=== PATIENT | male | born 1945 | race Caucasian/White ===

== ENCOUNTER 2019-04-14 08:36 | Emergency (ER) | payer MEDICARE, SELFPAY ==
[2019-04-14 08:50] VITALS: BP 181/79; PULSE 50; RESP 15; TEMP 37.3; O2SAT 98
--- NOTE | 2019-04-14 08:54 | DI.RAD.S_ITS ---
PROCEDURE: XR CHEST 1V INDICATIONS: chest pain TECHNIQUE: One view of the chest was acquired. COMPARISON: [facility], , CHEST 1 VIEW, 09/13/2015, 8:49. FINDINGS: Surgical changes and devices: None. Lungs and pleura: Lungs are clear. No pleural effusions or pneumothorax. Mediastinum: Mediastinal contours appear normal. Heart size is normal. Bones and chest wall: No suspicious bony lesions. Overlying soft tissues appear unremarkable. IMPRESSION: No acute disease Dictated by: Benitez Yang M.D. on 04/14/2019 at 9:25 Approved by: Benitez Yang M.D. on 04/14/2019 at 9:33
--- NOTE | 2019-04-14 08:57 | ED.CHESTPAIN ---
HPI - Chest Pain General Chief Complaint: Arrhythmia/Palpitations Stated Complaint: heart beat irregular Time Seen by Provider: 04/14/19 08:54 Source: patient Mode of arrival: Ambulatory Limitations: no limitations History of Present Illness HPI narrative: Patient is a 73-year-old male who presents with heart palpitations history of atrial fibrillation. He says he has been having it more over the last 5 days. He has been doing well over the last year. 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 Weir a fee gave him metoprolol to take as needed he has not needed it for a year but has definitely needed it more over the last week. He wakes up in the mornings a severe heart palpitation dizziness lightheadedness. He was seen by EMS according to them they said he had irregular heartbeat but his heart rate was 64 according to the records he brought. Currently he is in sinus rhythm on the monitor with a heart rate of 57 overall feeling much better. MD complaint: chest pain Duration: now resolved Onset: during rest Related Data Home Medications Medication Instructions Recorded Confirmed DORZOLAMIDE HYDROCHLORIDE 1 drp OPHTH BID #0 06/05/11 04/14/19 (Dorzolamide HCl) latanoprost [Xalatan] 1 drp OPHTH HS #0 drp 03/08/13 04/14/19 aspirin 81 mg PO DAILY 04/14/19 04/14/19 metoprolol tartrate 50 mg PO DAILY 04/14/19 04/14/19 timolol maleate 1 drp OPHTHALMIC (EYE) DIRECTED 04/14/19 04/14/19 Allergies Allergy/AdvReac Type Severity Reaction Status Date / Time Xifzwqi-Mwq-Pbo Reductase Allergy Mild EYE TROUBLE Unverified 10/06/17 12:04 Inhibitor [[id number] REDUCTASE INHIBITOR] alfuzosin [ALFUZOSIN] AdvReac Unknown PALPITATION Unverified 10/06/17 12:04 S dutasteride [DUTASTERIDE] AdvReac Unknown PALPITATION Unverified 10/06/17 12:04 S Review of Systems Review of Systems Narrative: GENERAL: Denies chills, fatigue, malaise, fever, sweats, travel HEENT: Denies sinus pain, ear pain, sore throat, difficulty swallowing, neck pain RESPIRATORY: Denies dyspnea, cough, wheezing, hemoptysis, sputum. CARDIOVASCULAR: See HPI GASTROINTESTINAL: Denies nausea, vomiting, abdominal pain, diarrhea, constipation, melena. : Denies dysuria, frequency, incontinence, hematuria, urinary retention, flank pain. MUSCULOSKELETAL: Denies weakness, joint pain, or bony pain SKIN: No rash, no erythema, no pruritus NEUROLOGIC: Denies weakness, dizziness, headache, numbness, change in speech, confusion PSYCHIATRIC: No concerning psychosocial issues. 12 point review of systems is negative except for those stated above and HPI Patient History Medical History Atypical chest pain (Acute) Benign non-nodular prostatic hyperplasia with lower urinary tract symptoms (09/19/15) Essential hypertension with goal blood pressure less than 130/85 (09/19/15) Gastroesophageal reflux disease with esophagitis (09/19/15) History of stroke (09/19/15) Mixed hyperlipidemia (09/19/15) Primary open angle glaucoma (POAG) of both eyes, mild stage (09/19/15) 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) Surgical History Status post cholecystectomy Family History (Updated 09/18/16 @ 00:00 by Conversion Provider) Father Cancer Family History Father Cancer Social History Smoking Status: Never smoker Exam Initial Vital Signs Initial Vital Signs: Vital Signs Temperature 99.2 F 04/14/19 08:50 Pulse Rate 50 L 04/14/19 08:50 Respiratory Rate 15 04/14/19 08:50 Blood Pressure 181/79 H 04/14/19 08:50 Pulse Oximetry 98 04/14/19 08:50 GENERAL: Well-appearing, well-nourished and in no acute distress. HEENT: Head atraumatic,EOMI, pupils reactive, face symmetric, moist mucous membranes CARDIOVASCULAR: Regular rate and rhythm without murmurs, rubs or gallops. RESPIRATORY: Breath sounds equal bilaterally, no wheezes rales or rhonchi. ABDOMEN: Soft, nontender. Normoactive bowel sounds all 4 quadrants. No guarding or rebound. EXTREMITIES: Normal range of motion, no clubbing or edema. Neurovascularly intact NEUROLOGICAL: Alert and oriented x4.Normal gait and speech. SKIN: Warm, dry, no laceration, no petechiae, no rashes or lesions. Course Orders Ordered: ED Orders 04/14/19 08:51 EKG-12 Lead Routine 04/14/19 08:54 XR chest 1V Stat 04/14/19 09:00 Complete Blood Count AUTO DIFF Stat Comprehensive Metabolic Panel Stat Lipase Stat Troponin & CK Cardiac Panel Stat Vital Signs Vital signs: Vital Signs - 8 hr 04/14/19 08:50 04/14/19 09:08 04/14/19 10:03 Temperature 99.2 F 99.2 F Pulse Rate 50 L 50 L 47 L Respiratory Rate 15 15 13 Blood Pressure 164/78 H Blood Pressure [Left Arm] 181/79 H 127/80 Pulse Oximetry 98 98 98 MDM - Chest Pain Lab Data Attestation: I reviewed the patient's lab results. Result diagrams: 04/14/19 09:00 04/14/19 09:00 Labs: Lab Results 04/14/19 04/14/19 Range/Units 09:00 09:00 WBC 7.2 (4.5-11.0) X10^3/uL RBC 5.01 (4.5-5.9) X10^6/uL Hgb 15.9 (13.5-17.5) g/dL Hct 46.1 (41-53) % MCV 92.0 (80-100) fL MCH 31.6 (26-34) PG MCHC 34.4 (30-36) % RDW 13.3 (11.6-14.8) % Plt Count 232 (150-400) X10^3/uL Neut % (Auto) 70.1 (50-75) % Lymph % (Auto) 20.8 L (25-40) % [place] % (Auto) 8.1 (3-14) % Eos % (Auto) 0.4 L (2-4) % Baso % (Auto) 0.6 (0-2) % Neut # (Auto) 5000 (8532-3123) /uL Lymph # (Auto) 1500 (9454-8386) /uL [place] # (Auto) 600 (0-900) /uL Eos # (Auto) 0 (0-450) /uL Baso # (Auto) 0 (0-100) /uL Sodium 138 (137-145) mmol/L Potassium 4.2 (3.4-5.1) mmol/L Chloride 101 (98-107) mmol/L Carbon Dioxide 27 (22-32) mmol/L BUN 16 (9-20) mg/dL Creatinine 0.90 (0.66-1.25) mg/dL Estimated GFR > 60.0 (>60) mL/min BUN/Creatinine Ratio 17.8 (6-22) Glucose 107 (80-110) mg/dL Calcium 9.5 (8.4-10.2) mg/dL Total Bilirubin 1.2 (0.2-1.3) mg/dL AST 46 (17-59) IU/L ALT 40 (21-72) IU/L Alkaline Phosphatase 67 (38-126) U/L Total Creatine Kinase 173 H (55-170) U/L CK-MB (CK-2) 5.13 H (<2.37) ng/mL CK-MB (CK-2) Rel Index 3.0 (1.5-5.0) % Troponin I < 0.012 (0.01-0.034) ng/mL Total Protein 7.5 (6.3-8.2) g/dL Albumin 4.7 (3.5-5.0) g/dL Globulin 2.8 (1.7-4.1) g/dL Albumin/Globulin Ratio 1.7 (1.0-2.8) Lipase 41 (23-300) U/L Imaging Data Chest x-ray: Radiologist's impression: PROCEDURE: XR CHEST 1V INDICATIONS: chest pain TECHNIQUE: One view of the chest was acquired. [facility]2015, 8:49. FINDINGS: Surgical changes and devices: None. Lungs and pleura: Lungs are clear. No pleural effusions or pneumothorax. Mediastinum: Mediastinal contours appear normal. Heart size is normal. Bones and chest wall: No suspicious bony lesions. Overlying soft tissues appear unremarkable. IMPRESSION: No acute disease Dictated by: Benitez Yang M.D. on 04/14/2019 at 9:25 ECG Data Attestation: I personally reviewed and interpreted this ECG as follows: Prior ECG tracings: available for review Interpretation: Normal sinus rhythm rate 55 p.r. interval 186 QRS [address] elevations or depressions similar to previous EKG MDM Narrative Medical decision making narrative: The patient overall appears well in the ED. No PVCs or arrhythmia on the monitor. He does have a prescription with refills of metoprolol. He was only taking it as needed however I do recommend that he start taking it daily as his symptoms seem to be worsening. 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 I discussed all findings with the patient , Education has been performed regarding treatment plan, diagnosis, warning signs and symptoms and all concerns have been addressed. Verbally agree with and understood all of the above. Discharge Plan Departure Patient Disposition: Home Clinical Impression: Heart palpitations Discharge Date/Time: 04/14/19 10:30 Instructions: DI for Palpitations Activity Restrictions/Additional Instructions: *You have been diagnosed with palpitations *What to do: I recommend you see your field crop harvest contractor for further evaluation. However at this time blood work and EKG are reassuring. *Continue to take medications as directed Metoprolol once daily *Follow up with your primary care provider in 2-3 days *Return to ER if you should have increasing heart palpitations or any new, worsening or concerning symptoms Prescriptions: No Action DORZOLAMIDE HYDROCHLORIDE (Dorzolamide HCl) 1 drp OPHTH BID Qty: 0 RF: 0 latanoprost [Xalatan] 0.005 % drops 1 drp OPHTH HS Qty: 0 RF: 0 aspirin 81 mg Tablet,Delayed Release (Dr/Ec) 81 mg PO DAILY RF: 0 metoprolol tartrate 50 mg tablet 50 mg PO DAILY RF: 0 timolol maleate 1 drp ophthalmic (eye) DIRECTED RF: 0 Referrals: Trey Bnod MD [Non-Staff] - Lawrence Rowan MD [Primary Care Provider] -
[2019-04-14 09:08] VITALS: BP 164/78; PULSE 50; RESP 15; TEMP 37.3; O2SAT 98; BMI 28.7
[2019-04-14 09:11] LABS: Add Manual Diff / Slide Review NO; Basophils Absolute Auto 0 /uL (0-100); Basophils Percent Auto 0.6 % (0-2); Eosinophils Absolute Auto 0 /uL (0-450); Eosinophils Percent Auto 0.4 % (2-4); Hematocrit 46.1 % (41-53); Hemoglobin 15.9 g/dL (13.5-17.5); Lymphocytes Absolute Auto 1500 /uL (1100-4500); Lymphocytes Percent Auto 20.8 % (25-40); Mean Corpuscular HGB Conc 34.4 % (30-36); Mean Corpuscular Hemoglobin 31.6 PG (26-34); Monocytes Absolute Auto 600 /uL (0-900); Monocytes Percent Auto 8.1 % (3-14); Neutrophils Absolute Auto 5000 /uL (1500-7000); Neutrophils Percent Auto 70.1 % (50-75); Platelet Count 232 X10^3/uL (150-400); Red Blood Cell Count 5.01 X10^6/uL (4.5-5.9); Red Cell Distribution Width 13.3 % (11.6-14.8); White Blood Cell Count 7.2 X10^3/uL (4.5-11.0)
[2019-04-14 09:24] LABS: Alanine Aminotransferase 40 IU/L (21-72); Albumin 4.7 g/dL (3.5-5.0); Albumin Globulin Ratio 1.7 (1.0-2.8); Alkaline Phosphatase 67 U/L (38-126); Aspartate Aminotransferase 46 IU/L (17-59); BUN Creatinine Ratio 17.8 (6-22); Bilirubin Total 1.2 mg/dL (0.2-1.3); Blood Urea Nitrogen 16 mg/dL (9-20); Calcium 9.5 mg/dL (8.4-10.2); Carbon Dioxide 27 mmol/L (22-32); Chloride 101 mmol/L (98-107); Creatine Kinase 173 U/L (55-170); Estimated Glomerular Filt Rate > 60.0 mL/min (>60); Globulin 2.8 g/dL (1.7-4.1); Glucose 107 mg/dL (80-110); HEMOLYSIS < 15 (0-50); Lipase 41 U/L (23-300); Potassium 4.2 mmol/L (3.4-5.1); Sodium 138 mmol/L (137-145); Total Protein 7.5 g/dL (6.3-8.2)
[2019-04-14 09:35] LABS: Troponin I < 0.012 ng/mL (0.01-0.034)
[2019-04-14 09:39] LABS: Creatine Kinase MB 5.13 ng/mL (<2.37)
[2019-04-14 10:03] VITALS: BP 127/80; PULSE 47; RESP 13; O2SAT 98
== END 2019-04-14 10:30 | disposition home or self-care (01) ==
PROVIDERS: Emergency Provider Emergency Medicine; Family Provider Family Medicine; PCP Family Medicine
DX: R00.2 Palpitations (principal)
CPT/HCPCS: 36415; 71045; 80053; 82550; 82553; 83690; 84484; 85025; 93005; 99282; 99285

== ENCOUNTER 2021-03-19 11:53 | Emergency (ER) | payer OTHER, MEDICARE, SELFPAY ==
[2021-03-19 12:03] VITALS: BP 178/84; PULSE 85; RESP 16; TEMP 36.7; O2SAT 99; BMI 28.5
--- NOTE | 2021-03-19 12:30 | PC.NURSE ---
Patient reports flank pain started 5 days ago and starting 2 days ago noticed that his stream has weakened during urination. Continues to have flank pain that is relieved by urinating but feels like he is unable to empty his bladder.
[2021-03-19 12:36] LABS: Appearance Urine UA CLEAR; Bilirubin Urine UA NEGATIVE (NEGATIVE); Color Urine UA YELLOW; Glucose Urine UA NEGATIVE (Negative); Ketones Urine UA NEGATIVE (NEGATIVE); Leukocyte Esterase Urine UA NEGATIVE (NEGATIVE); Nitrite Urine UA NEGATIVE (Negative); Occult Blood Urine UA TRACE-INTACT (Negative); Protein Urine UA NEGATIVE (Negative); Specific Gravity Urine UA 1.015 (1.000-1.035); Urobilinogen Urine UA 0.2 E.U./dL (0.2)
[2021-03-19 12:45] LABS: Amorphous Sediment Urine 1+; Culture Indicated Urine Cult Not Indicated; RBC Urine 0-1/HPF (0-5/HPF); WBC Urine None Seen (0-5/HPF)
--- NOTE | 2021-03-19 13:07 | DI.CT.S_ITS ---
PROCEDURE: CT KIDNEY URETER BLADDER (KUB) INDICATIONS: Right flank pain. Eval for kidney stone. TECHNIQUE: Axial sections were acquired from the lung bases to the pubic symphysis. Coronal and sagittal reformats were performed. For radiation dose reduction, the following was used: automated exposure control, adjustment of mA and/or kV according to patient size. COMPARISON: [facility], CT, KIDNEY/ URETER/BLADDER, 11/01/2013, 8:21. FINDINGS: Image quality: Excellent. Lung bases: Unremarkable. Heart: No significant findings. URINARY: Right Kidney: No stones or hydronephrosis. Right Ureter: No hydroureter. Left Kidney: No stones or hydronephrosis. Left Ureter: No hydroureter. Bladder: Normal wall thickness. No stones. Suspect TURP. ABDOMEN: Liver: Liver is normal in size. A 1.1 cm cyst is seen in segment 4 of liver, new since the last exam. In addition, there is a 1.8 x 1.5 cm exophytic cyst adjacent to the posterior inferior margin of liver, slightly enlarged (previously measured 1.4 x 1.0 cm on 11/01/2013). Gallbladder: Surgically removed. Biliary ducts: Unremarkable. Pancreas: Unremarkable. Spleen: Unremarkable. Adrenal Glands: Unremarkable. Stomach and Bowel: Stomach, small bowel loops, and colon are normal in caliber. Appendix is normal. Diverticulosis without acute diverticulitis. Peritoneum: No abnormal intraperitoneal fluid. No free air. Ventral Wall: Small fat containing umbilical hernia. Abdominal Nodes: No enlarged retroperitoneal or mesenteric lymph nodes. Vessels: Aorta and inferior vena cava are normal in size. PELVIS: Pelvic Organs: Unremarkable. Pelvic Nodes: Unremarkable. Miscellaneous: There is a small fat containing right inguinal hernia. Bones: Degenerative disc disease in lumbar spine, most pronounced at L3-L4. Severe facet arthropathy at L 3-L4 and L4-L5 bilaterally. IMPRESSION: 1. No renal stone or hydronephrosis. 2. Suspect TURP. 3. Normal appendix. 4. Diverticulosis without diverticulitis. 5. Degenerative disc and facet disease in lumbar spine. Dictated by: Gómez George M.D. on 03/19/2021 at 13:41 Approved by: Gómez George M.D. on 03/19/2021 at 13:53
--- NOTE | 2021-03-19 13:11 | ED_ITS ---
HPI - Back Pain/Injury General Chief Complaint: Back Pain/Injury Stated Complaint: bladder and kidney pain Time Seen by Provider: 03/19/21 12:54 Source: patient Mode of arrival: Ambulatory History of Present Illness HPI Narrative: Patient is a 75-year-old male sent from [place] by his primary doctor for evaluation of potential kidney stone. Patient states that for the past week he has had right-sided flank discomfort. Has also had some dysuria. Has had some prostate issues in the past. No fevers. He has never had a kidney stone in the past. He states that there have been times where he felt like he has been retaining urine. No skin rashes. Taking all of his medications as directed. Related Data Home Medications Medication Instructions Recorded Confirmed DORZOLAMIDE HYDROCHLORIDE 1 drp OPHTH BID #0 06/05/11 04/14/19 (Dorzolamide HCl) latanoprost 0.005 % eye drops 1 drp OPHTH HS #0 drp 03/08/13 04/14/19 (Xalatan) aspirin 81 mg tablet,delayed 81 mg PO DAILY 04/14/19 04/14/19 release metoprolol tartrate 50 mg tablet 50 mg PO DAILY 04/14/19 04/14/19 timolol maleate 1 drp OPHTHALMIC (EYE) DIRECTED 04/14/19 04/14/19 Allergies Allergy/AdvReac Type Severity Reaction Status Date / Time Epuiluz-Wgr-Iah Reductase Allergy Mild EYE TROUBLE Unverified 10/06/17 12:04 Inhibitor [[id number] REDUCTASE INHIBITOR] alfuzosin [ALFUZOSIN] AdvReac Unknown PALPITATION Unverified 10/06/17 12:04 S dutasteride [DUTASTERIDE] AdvReac Unknown PALPITATION Unverified 10/06/17 12:04 S Review of Systems Cardiovascular Cardiovascular: Reports system reviewed and no additional complaints, except as documented Respiratory Respiratory: Reports system reviewed and no additional complaints, except as documented Gastrointestinal Gastrointestinal: Reports as per HPI and Reports system reviewed and no additional complaints, except as documented Genitourinary Genitourinary: Reports system reviewed and no additional complaints, except as documented and Reports as per HPI Musculoskeletal Musculoskeletal: Reports system reviewed and no additional complaints, except as documented Integumentary/Breasts Skin/Breast: Reports system reviewed and no additional complaints, except as documented Neurologic Neurologic: Reports system reviewed and no additional complaints, except as documented Hematologic/Lymphatic On Anticoagulants: No Patient History Medical History Atypical chest pain Benign non-nodular prostatic hyperplasia with lower urinary tract symptoms (09/19/15) Essential hypertension with goal blood pressure less than 130/85 (09/19/15) Gastroesophageal reflux disease with esophagitis (09/19/15) History of stroke (09/19/15) Mixed hyperlipidemia (09/19/15) Primary open angle glaucoma (POAG) of both eyes, mild stage (09/19/15) 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) Surgical History Status post cholecystectomy Family History Father Cancer Social History Smoking Status: Never smoker Smoking Status: Never smoker alcohol intake frequency: 0-2 drinks per day Substance Use Type: does not use Exam Initial Vital Signs Initial Vital Signs: Vital Signs Temperature 98.1 F 03/19/21 12:03 Pulse Rate 85 03/19/21 12:03 Respiratory Rate 16 03/19/21 12:03 Blood Pressure 178/84 H 03/19/21 12:03 Pulse Oximetry 99 03/19/21 12:03 Const General: cooperative and healthy appearing HENME Head: normal to inspection and normocephalic Resp Effort & Inspection: normal respiratory effort Cardio Rate: regular rate GI Inspection: normal to inspection Palpation: soft and No tender Back/Spine/Pelvis Back: No CVA tenderness Skin General: no rashes or lesions noted Neuro General: patient alert, patient awake and moves all extremities Extrem General: normal to inspection and capillary refill normal Course Orders Ordered: ED Orders 03/19/21 12:11 Basic Metabolic Panel Stat Complete Blood Count AUTO DIFF Stat 03/19/21 12:21 Urinalysis and Microscopic Stat Urine Culture Stat 03/19/21 13:07 CT kidney ureter bladder (KUB) Stat Vital Signs Vital signs: Vital Signs - 8 hr 03/19/21 12:03 03/19/21 14:23 Temperature 98.1 F Pulse Rate 85 70 Respiratory Rate 16 18 Blood Pressure 178/84 H 167/84 H Pulse Oximetry 99 95 MDM - Back Pain/Injury Lab Data Attestation: I reviewed the patient's lab results. Result diagrams: 03/19/21 12:11 03/19/21 12:11 Labs: Lab Results 03/19/21 03/19/21 03/19/21 Range/Units 12:11 12:11 12:21 WBC 7.4 (4.5-11.0) X10^3/uL RBC 5.21 (4.5-5.9) X10^6/uL Hgb 16.4 (13.5-17.5) g/dL Hct 49.3 (41-53) % MCV 94.7 (80-100) fL MCH 31.6 (26-34) PG MCHC 33.3 (30-36) % RDW 13.9 (11.6-14.8) % Plt Count 256 (150-400) X10^3/uL Neut % (Auto) 64.9 (50-75) % Lymph % (Auto) 23.6 L (25-40) % [place] % (Auto) 9.6 (3-14) % Eos % (Auto) 1.3 L (2-4) % Baso % (Auto) 0.6 (0-2) % Neut # (Auto) 4800 (9475-1848) /uL Lymph # (Auto) 1800 (5313-8798) /uL [place] # (Auto) 700 (0-900) /uL Eos # (Auto) 100 (0-450) /uL Baso # (Auto) 0 (0-100) /uL Sodium 136 L (137-145) mmol/L Potassium 4.4 (3.4-5.1) mmol/L Chloride 103 (98-107) mmol/L Carbon Dioxide 28 (22-32) mmol/L BUN 24 H (9-20) mg/dL Creatinine 0.89 (0.66-1.25) mg/dL Estimated GFR > 60.0 (>60) mL/min BUN/Creatinine Ratio 27.0 H (6-22) Glucose 109 (80-110) mg/dL Calcium 9.2 (8.4-10.2) mg/dL Urine Color Yellow Urine Appearance Clear Urine pH 5.0 (4.5-8.0) Ur Specific [place] 1.015 (1.000-1.035) Urine Protein Negative (Negative) Urine Glucose (UA) Negative (Negative) g/dL Urine Ketones Negative (NEGATIVE) Urine Occult Blood Trace-intact (Negative) Urine Nitrate Negative (Negative) Urine Bilirubin Negative (NEGATIVE) Urine Urobilinogen 0.2 (0.2) E.U./dL Ur Leukocyte Esterase Negative (NEGATIVE) Urine RBC 0-1/hpf (0-5/HPF) Urine WBC None seen (0-5/HPF) Amorphous Sediment 1+ Urine Bacteria None seen (None) Ur Culture Indicated? Cult not indicated Imaging Data CT scan - abdomen/pelvis: Radiologist's Impression: [address] [id number] Scan ReportSigned Patient: Lawrence Turner GMR#: [id number]: 4Acct:[id number]/Sex: 75 / MDate of Service: 03/19/21Loc: EDAccession Number: [id number] Procedure: CT kidney ureter bladder (KUB) Ordering Provider: Fly Gonsales D.O. PROCEDURE: CT KIDNEY URETER BLADDER (KUB) INDICATIONS: Right flank pain. Eval for kidney stone. TECHNIQUE: Axial sections were acquired from the lung bases to the pubic symphysis. Coronal and sagittal reformats were performed. For radiation dose reduction, the following was used: automated exposure control, adjustment of mA and/or kV according to patient size. COMPARISON: [facility], CT, KIDNEY/ URETER/BLADDER, 11/01/2013, 8:21. FINDINGS: Image quality: Excellent. Lung bases: Unremarkable. Heart: No significant findings. URINARY: Right Kidney: No stones or hydronephrosis. Right Ureter: No hydroureter. Left Kidney: No stones or hydronephrosis. Left Ureter: No hydroureter. Bladder: Normal wall thickness. No stones. Suspect TURP. ABDOMEN: Liver: Liver is normal in size. A 1.1 cm cyst is seen in segment 4 of liver, new since the last exam. In addition, there is a 1.8 x 1.5 cm exophytic cyst adjacent to the posterior inferior margin of liver, slightly enlarged (previously measured 1.4 x 1.0 cm on 11/01/2013). Gallbladder: Surgically removed. Biliary ducts: Unremarkable. Pancreas: Unremarkable. Spleen: Unremarkable. Adrenal Glands: Unremarkable. Stomach and Bowel: Stomach, small bowel loops, and colon are normal in caliber. Appendix is normal. Diverticulosis without acute diverticulitis. Peritoneum: No abnormal intraperitoneal fluid. No free air. Ventral Wall: Small fat containing umbilical hernia. Abdominal Nodes: No enlarged retroperitoneal or mesenteric lymph nodes. Vessels: Aorta and inferior vena cava are normal in size. PELVIS: Pelvic Organs: Unremarkable. Pelvic Nodes: Unremarkable. Miscellaneous: There is a small fat containing right inguinal hernia. Bones: Degenerative disc disease in lumbar spine, most pronounced at L3-L4. Severe facet arthropathy at L 3-L4 and L4-L5 bilaterally. IMPRESSION: 1. No renal stone or hydronephrosis. 2. Suspect TURP. 3. Normal appendix. 4. Diverticulosis without diverticulitis. 5. Degenerative disc and facet disease in lumbar spine. Dictated by: Gómez George M.D. on 03/19/2021 at 13:41 Approved by: Gómez George M.D. on 03/19/2021 at 13:53 MDM Narrative Medical decision making narrative: Labs unremarkable. CT scan does not show any signs of kidney stone. No signs of urinary retention. No signs of urinary tract infection based on labs today. Kidney functions unremarkable. Potentially could have had a stone that he has passed prior to the CT scan. He did urinate here in the emergency department and stated that his symptoms seem to be improving somewhat. No emergent condition found today on workup. No further imaging test needed. No indication for antibiotics. When patient follow-up with primary provider. He expressed understanding and agreement. Discharge Plan Departure Patient Disposition: Home Clinical Impression: Dysuria Instructions: DI for Dysuria -- Adult Activity Restrictions/Additional Instructions: continue to take all of your medications as directed. Contact your primary doctor for a follow-up. Return to the emergency department for any new or worsening symptoms. Prescriptions: No Action DORZOLAMIDE HYDROCHLORIDE (Dorzolamide HCl) 1 drp OPHTH BID Qty: 0 RF: 0 latanoprost [Xalatan] 0.005 % drops 1 drp OPHTH HS Qty: 0 RF: 0 aspirin 81 mg Tablet,Delayed Release (Dr/Ec) 81 mg PO DAILY RF: 0 metoprolol tartrate 50 mg tablet 50 mg PO DAILY RF: 0 timolol maleate 1 drp ophthalmic (eye) DIRECTED RF: 0 Referrals: Lawrence Rowan MD [Primary Care Provider] -
[2021-03-19 13:17] LABS: Add Manual Diff / Slide Review NO; Basophils Absolute Auto 0 /uL (0-100); Basophils Percent Auto 0.6 % (0-2); Eosinophils Absolute Auto 100 /uL (0-450); Eosinophils Percent Auto 1.3 % (2-4); Hematocrit 49.3 % (41-53); Hemoglobin 16.4 g/dL (13.5-17.5); Lymphocytes Absolute Auto 1800 /uL (1100-4500); Lymphocytes Percent Auto 23.6 % (25-40); Mean Corpuscular HGB Conc 33.3 % (30-36); Mean Corpuscular Hemoglobin 31.6 PG (26-34); Mean Corpuscular Volume 94.7 fL (80-100); Monocytes Absolute Auto 700 /uL (0-900); Monocytes Percent Auto 9.6 % (3-14); Neutrophils Absolute Auto 4800 /uL (1500-7000); Neutrophils Percent Auto 64.9 % (50-75); Platelet Count 256 X10^3/uL (150-400); Red Blood Cell Count 5.21 X10^6/uL (4.5-5.9); Red Cell Distribution Width 13.9 % (11.6-14.8); White Blood Cell Count 7.4 X10^3/uL (4.5-11.0)
[2021-03-19 13:29] LABS: Blood Urea Nitrogen 24 mg/dL (9-20); Calcium 9.2 mg/dL (8.4-10.2); Carbon Dioxide 28 mmol/L (22-32); Chloride 103 mmol/L (98-107); Estimated Glomerular Filt Rate > 60.0 mL/min (>60); Glucose 109 mg/dL (80-110); Potassium 4.4 mmol/L (3.4-5.1); Sodium 136 mmol/L (137-145)
[2021-03-19 13:31] LABS: HEMOLYSIS 54 (0-50)
[2021-03-19 14:11] LABS: Bacteria Urine None Seen
[2021-03-19 14:23] VITALS: BP 167/84; PULSE 70; RESP 18; O2SAT 95
== END 2021-03-19 14:24 | disposition home or self-care (01) ==
PROVIDERS: Emergency Provider Emergency Medicine; Family Provider Family Medicine; PCP Family Medicine
DX: R30.0 Dysuria (principal); R10.9 Unspecified abdominal pain
CPT/HCPCS: 36415; 74176; 80048; 81001; 85025; 87086; 99284

== ENCOUNTER 2021-04-14 08:09 | Emergency (ER) | payer OTHER, MEDICARE, SELFPAY ==
[2021-04-14 08:46] VITALS: BP 154/90; PULSE 60; RESP 18; TEMP 36.8; O2SAT 94; BMI 28.7
[2021-04-14 09:22] LABS: Add Manual Diff / Slide Review NO; Basophils Absolute Auto 0 /uL (0-100); Basophils Percent Auto 0.6 % (0-2); Eosinophils Absolute Auto 100 /uL (0-450); Eosinophils Percent Auto 0.9 % (2-4); Hemoglobin 17.5 g/dL (13.5-17.5); Lymphocytes Absolute Auto 1500 /uL (1100-4500); Lymphocytes Percent Auto 23.6 % (25-40); Mean Corpuscular HGB Conc 34.2 % (30-36); Mean Corpuscular Hemoglobin 31.5 PG (26-34); Monocytes Absolute Auto 600 /uL (0-900); Monocytes Percent Auto 9.9 % (3-14); Neutrophils Absolute Auto 4200 /uL (1500-7000); Platelet Count 231 X10^3/uL (150-400); Red Blood Cell Count 5.55 X10^6/uL (4.5-5.9); Red Cell Distribution Width 13.4 % (11.6-14.8); White Blood Cell Count 6.5 X10^3/uL (4.5-11.0)
[2021-04-14 09:31] LABS: Alanine Aminotransferase 48 IU/L (<50); Albumin 4.8 g/dL (3.5-5.0); Albumin Globulin Ratio 1.5 (1.0-2.8); Alkaline Phosphatase 83 U/L (38-126); Aspartate Aminotransferase 48 IU/L (17-59); BUN Creatinine Ratio 20.9 (6-22); Bilirubin Total 1.3 mg/dL (0.2-1.3); Blood Urea Nitrogen 18 mg/dL (9-20); Calcium 9.9 mg/dL (8.4-10.2); Carbon Dioxide 26 mmol/L (22-32); Chloride 101 mmol/L (98-107); Estimated Glomerular Filt Rate > 60.0 mL/min (>60); Globulin 3.3 g/dL (1.7-4.1); Glucose 115 mg/dL (80-110); HEMOLYSIS 53 (0-50); Lipase 67 U/L (23-300); Potassium 4.5 mmol/L (3.4-5.1); Sodium 137 mmol/L (137-145); Total Protein 8.1 g/dL (6.3-8.2)
--- NOTE | 2021-04-14 11:40 | ED.ABDPAIN ---
HPI - Abdominal Pain General Chief Complaint: Abdominal Pain Stated Complaint: Abd pain/back pain right side Time Seen by Provider: 04/14/21 11:33 Source: patient Mode of arrival: Ambulatory Limitations: no limitations History of Present Illness HPI narrative: Patient is a 75-year-old male who presents with right lower abdominal pain and right flank pain ongoing for last 2-3 weeks. He was seen and evaluated here in this emergency department on 03/19/[address] KUB and blood work. He was discharged home and has had persistent ongoing pain. He says actually comes and goes really is not getting any better. He is worried because previously he had a gangrenous gallbladder which had to be surgically removed he said that he was persistent about his symptoms which is the only reason why it was found. He denies any fever or chills. He has absolutely no chest pain or shortness of breath. He is having normal bowel movements no nausea or vomiting. He has some right flank pain but no painful or frequent urination. Related Data Home Medications Medication Instructions Recorded Confirmed DORZOLAMIDE HYDROCHLORIDE 1 drp OPH BID #0 06/05/11 04/14/19 (Dorzolamide HCl) latanoprost 0.005 % eye drops 1 drp OPH HS #0 drp 03/08/13 04/14/19 (Xalatan) aspirin 81 mg tablet,delayed 81 mg PO DAILY 04/14/19 04/14/19 release metoprolol tartrate 50 mg tablet 50 mg PO DAILY 04/14/19 04/14/19 timolol maleate 1 drp OPHTHALMIC (EYE) DIRECTED 04/14/19 04/14/19 Allergies Allergy/AdvReac Type Severity Reaction Status Date / Time Qnqdzwv-Bfj-Vua Reductase Allergy Mild EYE TROUBLE Verified 04/14/21 08:46 Inhibitor [[id number]-CMC REDUCTASE INHIBITOR] alfuzosin [ALFUZOSIN] AdvReac Unknown PALPITATION Verified 04/14/21 08:46 S dutasteride [DUTASTERIDE] AdvReac Unknown PALPITATION Verified 04/14/21 08:46 S Review of Systems Review of Systems Narrative: GENERAL: Denies chills, fatigue, malaise, fever, sweats, travel HEENT: Denies sinus pain, ear pain, sore throat, difficulty swallowing, neck pain RESPIRATORY: Denies dyspnea, cough, wheezing, hemoptysis, sputum. CARDIOVASCULAR: Denies chest pain, palpitations, orthopnea, edema GASTROINTESTINAL: Denies nausea, vomiting, abdominal pain, diarrhea, constipation, melena. : Denies dysuria, frequency, incontinence, hematuria, urinary retention, flank pain. MUSCULOSKELETAL: Denies weakness, joint pain, or bony pain SKIN: No rash, no erythema, no pruritus NEUROLOGIC: Denies weakness, dizziness, headache, numbness, change in speech, confusion PSYCHIATRIC: No concerning psychosocial issues. 12 point review of systems is negative except for those stated above and HPI Patient History Medical History (Updated 04/14/21 @ 13:06 by Yuli Romero DO) Atypical chest pain Benign non-nodular prostatic hyperplasia with lower urinary tract symptoms (09/19/15) Essential hypertension with goal blood pressure less than 130/85 (09/19/15) Gastroesophageal reflux disease with esophagitis (09/19/15) History of stroke (09/19/15) Mixed hyperlipidemia (09/19/15) Primary open angle glaucoma (POAG) of both eyes, mild stage (09/19/15) 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) Surgical History Status post cholecystectomy Family History Father Cancer Social History Smoking Status: Never smoker Smoking Status: Never smoker alcohol intake frequency: 0-2 drinks per day Substance Use Type: does not use Exam Initial Vital Signs Initial Vital Signs: Vital Signs Temperature 98.3 F 04/14/21 08:46 Pulse Rate 60 04/14/21 08:46 Respiratory Rate 18 04/14/21 08:46 Blood Pressure 154/90 H 04/14/21 08:46 Pulse Oximetry 94 04/14/21 08:46 GENERAL: Alert well-appearing 75-year-old male HEENT: Head atraumatic,EOMI, pupils reactive, face symmetric, moist mucous membranes CARDIOVASCULAR: Regular rate and rhythm without murmurs, rubs or gallops. RESPIRATORY: Breath sounds equal bilaterally, no wheezes rales or rhonchi. ABDOMEN: Soft, right lower quadrant pain no guarding or rebound negative Nath's sign no left-sided pain no epigastric : Mild rightCVA tenderness EXTREMITIES: Normal range of motion, no clubbing or edema. Neurovascularly intact NEUROLOGICAL: Alert and oriented x4.Normal gait and speech. SKIN: Warm, dry, no laceration, no petechiae, no rashes or lesions. Course Orders Ordered: ED Orders 04/14/21 11:49 CT abdomen pelvis w con Stat Vital Signs Vital signs: Vital Signs - 8 hr 04/14/21 11:43 04/14/21 13:02 04/14/21 13:03 Pulse Rate 66 65 65 Respiratory Rate 20 Blood Pressure 172/88 H Pulse Oximetry 97 95 96 MDM - Abdominal Pain Lab Data Result diagrams: 04/14/21 09:00 04/14/21 09:00 Labs: Lab Results 04/14/21 04/14/21 Range/Units 09:00 09:00 WBC 6.5 (4.5-11.0) X10^3/uL RBC 5.55 (4.5-5.9) X10^6/uL Hgb 17.5 (13.5-17.5) g/dL Hct 51.0 (41-53) % MCV 92.0 (80-100) fL MCH 31.5 (26-34) PG MCHC 34.2 (30-36) % RDW 13.4 (11.6-14.8) % Plt Count 231 (150-400) X10^3/uL Neut % (Auto) 65.0 (50-75) % Lymph % (Auto) 23.6 L (25-40) % [place] % (Auto) 9.9 (3-14) % Eos % (Auto) 0.9 L (2-4) % Baso % (Auto) 0.6 (0-2) % Neut # (Auto) 4200 (1201-9899) /uL Lymph # (Auto) 1500 (5056-2415) /uL [place] # (Auto) 600 (0-900) /uL Eos # (Auto) 100 (0-450) /uL Baso # (Auto) 0 (0-100) /uL Sodium 137 (137-145) mmol/L Potassium 4.5 (3.4-5.1) mmol/L Chloride 101 (98-107) mmol/L Carbon Dioxide 26 (22-32) mmol/L BUN 18 (9-20) mg/dL Creatinine 0.86 (0.66-1.25) mg/dL Estimated GFR > 60.0 (>60) mL/min BUN/Creatinine Ratio 20.9 (6-22) Glucose 115 H (80-110) mg/dL Calcium 9.9 (8.4-10.2) mg/dL Total Bilirubin 1.3 (0.2-1.3) mg/dL AST 48 (17-59) IU/L ALT 48 (<50) IU/L Alkaline Phosphatase 83 (38-126) U/L Total Protein 8.1 (6.3-8.2) g/dL Albumin 4.8 (3.5-5.0) g/dL Globulin 3.3 (1.7-4.1) g/dL Albumin/Globulin Ratio 1.5 (1.0-2.8) Lipase 67 (23-300) U/L Point of care testing: Urine Dip Bedside Urine Glucose Negative Bedside Urine Bilirubin - Negative Bedside Urine Ketone - Negative Urine Specific [place] 1.025 Bedside Urine Occult Blood - Negative Bedside Urine pH 6.0 Bedside Urine Protein - Negative Bedside Urine Urobilinogen - Negative Bedside Urine Nitrite - Negative Bedside Urine Leukocytes - Negative Esterase Imaging Data CT scan - abdomen/pelvis: Radiologist's Impression: PROCEDURE:? CT ABDOMEN PELVIS W CON ? INDICATIONS:? RLQ pain ? TECHNIQUE:? After the administration of intravenous contrast, axial sections acquired from the lung bases to the pubic symphysis.? Coronal and sagittal reformats were performed.? For radiation dose reduction, the following was used:? automated exposure control, adjustment of mA and/or kV according to patient size.? ? COMPARISON:? [facility], CT, ABDOMEN/PELVIS WITH CONTRAST, 05/18/2009, 14:47. ? FINDINGS:? Image quality:? Excellent.? ? Lung bases:? Unremarkable. Heart:? Macro coronary calcs.? No pericardial effusion. ? ABDOMEN: Liver:? The liver is hypodense consistent with hepatic steatosis.? A few subcentimeter hypodensities are consistent with cysts.? Nodule at the inferior tip of the liver is unchanged since 2008. Gallbladder:? Status post cholecystectomy.? ? Biliary ducts:? Unremarkable.? ? Pancreas:? Unremarkable.? ? Spleen:? Unremarkable.? ? Adrenal Glands:? Unremarkable.? Previously seen left adrenal adenoma is not currently visualized. ? Kidneys and Ureters:? Unremarkable.? ? ? Stomach and Bowel:? Stomach, small bowel loops, and colon are unremarkable.? There is diverticulosis without evidence of diverticulitis. Peritoneum:? No abnormal intraperitoneal fluid.? No free air.? ? Ventral Wall: ? No hernias.? Abdominal Nodes:? No retroperitoneal or mesenteric adenopathy by size criteria.? Vessels:? Aorta and inferior vena cava are normal in size.? ? PELVIS: Pelvic Organs:? Unremarkable.? ? Bladder:? Unremarkable.? ? Pelvic Nodes: No enlarged lymph nodes.? Miscellaneous:? Fat containing right inguinal hernia. ? Bones:? There is diverticulosis without evidence of diverticulitis. ? ? IMPRESSION: 1. No acute abnormality of the abdomen or pelvis. 2. The appendix is not definitively visualized; however there are no secondary findings to suggest acute appendicitis. 3. No kidney stone or hydronephrosis identified.? 4. Colonic diverticulosis without evidence of diverticulitis. ? ? Dictated by: Mariusz Stephens M.D. on 04/14/2021 at 12:17 ? ? Approved by: Mariusz Stephens M.D. on 04/14/2021 at 12:24? MDM Narrative Medical decision making narrative: Patient is having pain off and on for a number of weeks. This is unlikely to be dissection he is hemodynamically stable unlikely to be a thoracic aneurysm. Will get CT with contrast today day to see because this any more information blood work overall appears within normal limits. He is not requesting anything for pain. Blood work is overall reassuring. Recommend outpatient colonoscopy and possible GI referral at this time. Discharge Plan Departure Patient Disposition: Home Clinical Impression: Abdominal pain Qualifiers: Abdominal location: lower abdomen, unspecified Qualified Code(s): R10.30 - Lower abdominal pain, unspecified Instructions: DI for Abdominal Pain-Adult Activity Restrictions/Additional Instructions: *You have been diagnosed with abdominal pain *What to do: At this time blood work is overall reassuring, CT scan does not show any abnormality. I do recommend outpatient colonoscopy and possibly GI consultation if her pain does not improve. *Continue to take medications as directed Tylenol 650 mg every 4-6 hours if needed for [id number] pain Motrin 600 mg every 6 hours if needed for aamj-xn-jgrhtijc pain *Follow up with your primary care provider in 2-3 days *Return to ER if you should have increase pain, persistent vomiting, confusion or any new, worsening or concerning symptoms Prescriptions: No Action DORZOLAMIDE HYDROCHLORIDE (Dorzolamide HCl) 1 drp OPHTH BID Qty: 0 RF: 0 latanoprost [Xalatan] 0.005 % drops 1 drp OPHTH HS Qty: 0 RF: 0 aspirin 81 mg Tablet,Delayed Release (Dr/Ec) 81 mg PO DAILY RF: 0 metoprolol tartrate 50 mg tablet 50 mg PO DAILY RF: 0 timolol maleate 1 drp ophthalmic (eye) DIRECTED RF: 0 Referrals: Lawrence Rowan MD [Primary Care Provider] -
[2021-04-14 11:43] VITALS: PULSE 66; RESP 20; O2SAT 97
--- NOTE | 2021-04-14 11:49 | DI.CT.S_ITS ---
PROCEDURE: CT ABDOMEN PELVIS W CON INDICATIONS: RLQ pain TECHNIQUE: After the administration of intravenous contrast, axial sections acquired from the lung bases to the pubic symphysis. Coronal and sagittal reformats were performed. For radiation dose reduction, the following was used: automated exposure control, adjustment of mA and/or kV according to patient size. COMPARISON: [facility], CT, ABDOMEN/PELVIS WITH CONTRAST, 05/18/2009, 14:47. FINDINGS: Image quality: Excellent. Lung bases: Unremarkable. Heart: Macro coronary calcs. No pericardial effusion. ABDOMEN: Liver: The liver is hypodense consistent with hepatic steatosis. A few subcentimeter hypodensities are consistent with cysts. Nodule at the inferior tip of the liver is unchanged since 2008. Gallbladder: Status post cholecystectomy. Biliary ducts: Unremarkable. Pancreas: Unremarkable. Spleen: Unremarkable. Adrenal Glands: Unremarkable. Previously seen left adrenal adenoma is not currently visualized. Kidneys and Ureters: Unremarkable. Stomach and Bowel: Stomach, small bowel loops, and colon are unremarkable. There is diverticulosis without evidence of diverticulitis. Peritoneum: No abnormal intraperitoneal fluid. No free air. Ventral Wall: No hernias. Abdominal Nodes: No retroperitoneal or mesenteric adenopathy by size criteria. Vessels: Aorta and inferior vena cava are normal in size. PELVIS: Pelvic Organs: Unremarkable. Bladder: Unremarkable. Pelvic Nodes: No enlarged lymph nodes. Miscellaneous: Fat containing right inguinal hernia. Bones: There is diverticulosis without evidence of diverticulitis. IMPRESSION: 1. No acute abnormality of the abdomen or pelvis. 2. The appendix is not definitively visualized; however there are no secondary findings to suggest acute appendicitis. 3. No kidney stone or hydronephrosis identified. 4. Colonic diverticulosis without evidence of diverticulitis. Dictated by: Mariusz Stephens M.D. on 04/14/2021 at 12:17 Approved by: Mariusz Stephens M.D. on 04/14/2021 at 12:24
[2021-04-14 13:02] VITALS: PULSE 65; O2SAT 95
[2021-04-14 13:03] VITALS: BP 172/88; PULSE 65; O2SAT 96
== END 2021-04-14 13:14 | disposition home or self-care (01) ==
PROVIDERS: Emergency Provider Emergency Medicine; Family Provider Family Medicine; PCP Family Medicine
DX: R10.31 Right lower quadrant pain (principal)
CPT/HCPCS: 36415; 74177; 80053; 81003; 83690; 85025; 99284; Q9967

== ENCOUNTER 2022-08-21 07:41 | Emergency (ER) | payer MEDICARE, SELFPAY ==
[2022-08-21 08:00] VITALS: BP 201/81; PULSE 86; RESP 16; TEMP 36.1; O2SAT 98; BMI 29.5
--- NOTE | 2022-08-21 08:16 | ED_ITS ---
HPI - Skin/Abscess/Foreign Bdy General Chief complaint: Skin/Abscess/Foreign Body Stated complaint: infection on both feet getting worse T-14 Time Seen by Provider: 08/21/22 08:04 History of Present Illness HPI narrative: Patient here from home complains of left worsened right fungal infection. Started about 4 weeks ago. Patient states this is not new. He had blood work done 2 weeks ago. He may be prediabetic he states. However he has these episodes quite frequently and usually with dietary changes it does improve. He saw his primary care 2 weeks ago at [place]. He was placed on ketoconazole originally but with no improvement. He just was placed on fluconazole orally. No fever chills. No skin drainage. Related Data Home Medications Medication Instructions Recorded Confirmed DORZOLAMIDE HYDROCHLORIDE 1 drp OPHTH BID ##0 06/05/11 04/14/19 (Dorzolamide HCl) latanoprost 0.005 % eye drops 1 drp OPHTH HS #0 drps 03/08/13 04/14/19 (Xalatan) aspirin 81 mg tablet,delayed 81 mg PO DAILY 04/14/19 04/14/19 release metoprolol tartrate 50 mg tablet 50 mg PO DAILY 04/14/19 04/14/19 timolol maleate 1 drp ophthalmic (eye) DIRECTED 04/14/19 04/14/19 Previous Rx's Medication Instructions Recorded doxycycline monohydrate 100 mg 100 mg PO BID #20 caps 08/21/22 capsule Allergies Allergy/AdvReac Type Severity Reaction Status Date / Time Ketmnuh-PAF-ViI Reductase Allergy Mild EYE TROUBLE Verified 04/14/21 08:46 Inhibitor [IKZOJVL-FLX-DCG REDUCTASE INHIBITOR] alfuzosin [ALFUZOSIN] AdvReac Unknown PALPITATION Verified 04/14/21 08:46 S dutasteride [DUTASTERIDE] AdvReac Unknown PALPITATION Verified 04/14/21 08:46 S Review of Systems Review of Systems Narrative: GENERAL: negative chills, fatigue, malaise, fever, sweats. HEENT: negative sinus pain, ear pain, sore throat RESPIRATORY: negative dyspnea, cough CARDIOVASCULAR: negative chest pain, palpitations GASTROINTESTINAL: negative nausea, vomiting, abdominal pain : negative dysuria, frequency, hematuria MUSCULOSKELETAL: negative muscle or bony pain SKIN: Positive rash, skin lesions NEUROLOGIC: negative weakness, numbness ROS Unobtainable: All systems reviewed & are unremarkable except as noted in HPI and below Patient History Medical History Atypical chest pain Benign non-nodular prostatic hyperplasia with lower urinary tract symptoms (09/19/15) Essential hypertension with goal blood pressure less than 130/85 (09/19/15) Gastroesophageal reflux disease with esophagitis (09/19/15) History of stroke (09/19/15) Mixed hyperlipidemia (09/19/15) Primary open angle glaucoma (POAG) of both eyes, mild stage (09/19/15) 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) Surgical History Status post cholecystectomy Family History Father Cancer Social History Smoking Status: Never smoker Smoking Status: Never smoker alcohol intake frequency: 0-2 drinks per day Substance Use Type: does not use Exam Narrative Exam Narrative: GENERAL: in no distress, not toxic not dyspneic HEAD: Normocephalic. EYES: Pupils equal round EXTREMITIES: No gross deformities. Examination bilateral legs and feet. There is erythema consistent with Tete of bilateral soles of the feet edges of feet and ascending nedu-lisbhoj-svdj-right along the Achilles tendon. Surgical pen used to draw margins. Skin is dry. No oozing. No necrotic tissue. There is onychomycosis of the toenails as well. There are areas of cellulitic/erythema on the left foot but no abscess or blistering NEURO: AOx4. SKIN: Warm and dry PSYCH: Not anxious, is cooperative Initial Vital Signs Initial Vital Signs: Vital Signs Temperature 97 F L 08/21/22 08:00 Pulse Rate 86 08/21/22 08:00 Respiratory Rate 16 08/21/22 08:00 Blood Pressure 201/81 H 08/21/22 08:00 Pulse Oximetry 98 08/21/22 08:00 Oxygen Delivery Method 08/21/22 08:00 Course Orders Ordered: Discontinued Medications Doxycycline Hyclate (Doxycycline Hyclate 100 Mg Tablet) 100 mg PO NOW ONE Stop: 08/21/22 08:14 Last Admin: 08/21/22 08:39 Dose: 100 mg Documented By: NELDA Vital Signs Vital signs: Vital Signs - 8 hr 08/21/22 08:00 08/21/22 08:28 Temperature 97 F L Pulse Rate 86 78 Respiratory Rate 16 18 Blood Pressure 201/81 H 175/79 H Pulse Oximetry 98 94 Oxygen Delivery Method Room Air Room Air MDM - Skin/Abscess/Foreign Bdy MDM Narrative Medical decision making narrative: Patient here from home complains of left worsened right fungal infection. Started about 4 weeks ago. Patient states this is not new. He had blood work done 2 weeks ago. He may be prediabetic he states. However he has these episodes quite frequently and usually with dietary changes it does improve. He saw his primary care 2 weeks ago at [place]. He was placed on ketoconazole originally but with no improvement. He just was placed on fluconazole orally. No fever chills. No skin drainage. After history and exam no blood work indicated at this time. [facility] CC: Tete pedis Complicating co-morbidities: Frequent infections Data collected from: Patient Medical records reviewed: No previous visits here for this complaint Differential considered: Includes but not limited to cellulitis/Tete Exam documented above, pertinent findings include: Tete/cellulitis Treatments: Doxycycline Re-evaluations: Reviewed with patient, agrees for treatment doxycycline as this may be concomitant bacterial infection/cellulitis. Return precautions reviewed with him. Doxycycline started here. Discussion: Appropriate for discharge home. Patient not toxic. Patient given referral for Podiatry as well. No bloating indicated at this time. Patient does have blood work 2 weeks ago. Patient states he was informed he does not have diabetes but may be prediabetic. With frequent fungal infections, I did give patient podiatry referral. At this time no necrotic toes or tissues. No crepitus on exam. No pain out of proportion to exam. Patient describes as pruritic and not painful. Doxycycline started and patient to continue his antifungal medications from his provider. Diagnosis: Cellulitis/Tete Discharge Plan Departure Patient Disposition: Home Clinical Impression: Athlete's foot, Cellulitis Instructions: DI for Cellulitis -- Adult, DI for Athlete's Foot Activity Restrictions/Additional Instructions: Please call provided foot and ankle services today to make appointment for re- evaluation next week for your skin infection of the feet. Please do continue topical antifungal cream as well as oral antifungal pills. There may be component of bacterial infection/cellulitis of the skin on your feet. You have been started on doxycycline antibiotic pills. Please continue these pills for full completion. Please pickling solution maker at your [facility] pharmacy today. Return if worse if any questions or concerns Prescriptions: New doxycycline monohydrate 100 mg capsule 100 mg PO BID Qty: 20 0RF No Action DORZOLAMIDE HYDROCHLORIDE (Dorzolamide HCl) 1 drp OPHTH BID Qty: 0 latanoprost [Xalatan] 0.005 % drops 1 drp OPHTH HS Qty: 0 aspirin 81 mg Tablet,Delayed Release (Dr/Ec) 81 mg PO DAILY metoprolol tartrate 50 mg tablet 50 mg PO DAILY timolol maleate 1 drp ophthalmic (eye) DIRECTED Referrals: Aliyah Aguilar DPM [Physician] - Katharina Valencia MD [Primary Care Provider] - Stand Alone Forms: Patient Portal/API
[2022-08-21 08:28] VITALS: BP 175/79; PULSE 78; RESP 18; O2SAT 94
[2022-08-21] MEDS: DOXYCYCLINE HYCLATE 100 MG TABLET PO (08:39)
== END 2022-08-21 08:56 | disposition home or self-care (01) ==
PROVIDERS: Emergency Provider Emergency Medicine; Family Provider Family Medicine; PCP Family Medicine
DX: B35.3 Tinea pedis (principal); L03.116 Cellulitis of left lower limb; B37.2 Candidiasis of skin and nail; R10.31 Right lower quadrant pain
CPT/HCPCS: 76770; 99283

== ENCOUNTER → 2022-08-21 08:47 | Outpatient (CLI) | payer MEDICARE, SELFPAY ==
--- NOTE | 2022-08-21 | DI.US.S_ITS ---
PROCEDURE: US RENAL COMPLETE INDICATIONS: RLQ PAIN; KIDNEY STONE ON OUTSIDE X-RAY TECHNIQUE: Real-time scanning was performed of the kidneys and bladder, with image documentation. COMPARISON: None. FINDINGS: Kidneys: Kidneys are normal in size. Right kidney measures 11.3 cm long; left kidney measures 11.8 cm long. Right renal cortical thickness is 1.6 cm; left renal cortical thickness is 2.0 cm. Renal cortical echotexture is normal. No hydronephrosis or nephrolithiasis. No suspicious solid mass lesions. Bladder: Urinary bladder is decompressed. Pre-void images demonstrate no intraluminal masses or stones. On pre-void images, no ureteral jets are noted with color Doppler interrogation. (Of note, ureteral jets may not be detectable in up to 25% of cases due to insufficient differences in specific gravity between ureteral and bladder urine). No gross distal ureteral stone is seen. Miscellaneous: No free pelvic fluid. IMPRESSION: 1. No hydronephrosis or hydroureter is seen. 2. No evidence of right distal ureteral stone. No gross abnormality is seen in partially distended urinary bladder. Dictated by: Donald Hussein M.D. on 08/21/2022 at 11:57 Approved by: Donald Hussein M.D. on 08/21/2022 at 12:03
== END ==
PROVIDERS: Family Provider Family Medicine; PCP Family Medicine; Referring Provider Family Medicine; Visit Provider Family Medicine
DX: R10.31 Right lower quadrant pain (principal)
CPT/HCPCS: 76770

== ENCOUNTER 2023-07-02 19:21 | Emergency (ER) | payer OTHER, SELFPAY ==
[2023-07-02 19:26] VITALS: BP 175/89; PULSE 73; RESP 17; TEMP 37.1; O2SAT 97; BMI 28.7
[2023-07-02 19:46] LABS: Add Manual Diff / Slide Review NO; Basophils Absolute Auto 100 /uL (0-100); Basophils Percent Auto 0.6 % (0-2); Eosinophils Absolute Auto 200 /uL (0-450); Eosinophils Percent Auto 1.7 % (2-4); Hemoglobin 16.2 g/dL (13.5-17.5); Lymphocytes Absolute Auto 2300 /uL (1100-4500); Lymphocytes Percent Auto 23.9 % (25-40); Mean Corpuscular HGB Conc 34.4 % (30-36); Mean Corpuscular Hemoglobin 31.4 PG (26-34); Mean Corpuscular Volume 91.3 fL (80-100); Monocytes Absolute Auto 800 /uL (0-900); Monocytes Percent Auto 7.9 % (3-14); Neutrophils Absolute Auto 6300 /uL (1500-7000); Neutrophils Percent Auto 65.9 % (50-75); Platelet Count 308 X10^3/uL (150-400); Red Blood Cell Count 5.15 X10^6/uL (4.5-5.9); Red Cell Distribution Width 13.5 % (11.6-14.8); White Blood Cell Count 9.5 X10^3/uL (4.5-11.0)
[2023-07-02 19:59] LABS: Alanine Aminotransferase 48 IU/L (<50); Albumin 4.6 g/dL (3.5-5.0); Albumin Globulin Ratio 1.3 (1.0-2.8); Alkaline Phosphatase 93 U/L (38-126); Aspartate Aminotransferase 52 IU/L (17-59); BUN Creatinine Ratio 25.9 (6-22); Bilirubin Total 0.9 mg/dL (0.2-1.3); Blood Urea Nitrogen 21 mg/dL (9-20); Calcium 9.8 mg/dL (8.4-10.2); Carbon Dioxide 27 mmol/L (22-32); Chloride 100 mmol/L (98-107); Estimated Glomerular Filt Rate > 60 mL/min (>60); Globulin 3.5 g/dL (1.7-4.1); Glucose 104 mg/dL (80-110); Lipase 109 U/L (23-300); Potassium 4.4 mmol/L (3.4-5.1); Sodium 135 mmol/L (137-145); Total Protein 8.1 g/dL (6.3-8.2)
[2023-07-02 20:02] LABS: HEMOLYSIS 52 (0-50)
--- NOTE | 2023-07-02 20:41 | DI.CT.S_ITS ---
PROCEDURE: CT ABDOMEN PELVIS W CON INDICATIONS: abdominal pain TECHNIQUE: After the administration of intravenous contrast, axial sections acquired from the lung bases to the pubic symphysis. Coronal and sagittal reformats were performed. For radiation dose reduction, the following was used: automated exposure control, adjustment of mA and/or kV according to patient size. COMPARISON: [facility], CT, CT ABDOMEN PELVIS W CON, 04/14/2021, 11:56. FINDINGS: Image quality: Diagnostic. Lower Chest: No significant findings. ABDOMEN: Liver: No solid mass. Nodule at the inferior tip of the liver is unchanged. Subcentimeter hypodensities are noted. Gallbladder: Surgically absent. Biliary ducts: No biliary dilation. Pancreas: No ductal dilation. Spleen: Size is within normal limits. Splenule is noted. Adrenal Glands: No adrenal nodules. Kidneys and Ureters: No hydronephrosis. No solid mass. No complex renal cystic lesion which requires follow up. Stomach and Bowel: Normal colonic caliber, without significant wall thickening. Diverticulosis without evidence of acute diverticulitis. Normal appendix. Peritoneum: No abnormal intraperitoneal fluid. No free air. Ventral Wall: Small fat containing umbilical hernia. Abdominal Nodes: No retroperitoneal or mesenteric adenopathy by size criteria. Vessels: Aorta and inferior vena cava are normal in size. Atherosclerotic vascular calcifications. PELVIS: Pelvic Organs: Unremarkable. Bladder: Unremarkable. Pelvic Nodes: No enlarged lymph nodes. Miscellaneous: Small right inguinal hernia containing fat. Bones: No aggressive osseous abnormality. Degenerative changes of the spine. IMPRESSION: 1. Normal appendix. No acute findings within the abdomen or pelvis to explain patient's symptoms. 2. Diverticulosis without evidence of acute diverticulitis. Dictated by: Farzad Bautista M.D. on 07/02/2023 at 21:27 Approved by: Farzad Bautista M.D. on 07/02/2023 at 21:30
--- NOTE | 2023-07-02 21:21 | ED.ABDPAIN ---
HPI - Abdominal Pain General Chief Complaint: Abdominal Pain Stated Complaint: ABDOMINAL AND NECK PAIN Time Seen by Provider: 07/02/23 19:36 Source: patient Mode of arrival: Ambulatory History of Present Illness HPI narrative: 78-year-old male who presents with right lower quadrant abdominal pain that radiates to his back intermittently for 2 weeks. Patient denies aggravating factors, but reports taking Naprosyn with improvement in symptoms. Patient reports transient lightheadedness and bilateral paraspinal cervical neck pain that has resolved. [place] things to get worse without getting ?checked out?. No other complaints or associated symptoms noted. Patient arrives via private vehicle. The patient is ambulatory awake, alert, no apparent distress and maintaining his own airway. Related Data Home Medications Medication Instructions Recorded Confirmed DORZOLAMIDE HYDROCHLORIDE 1 drp OPHTH BID ##0 06/05/11 04/14/19 (Dorzolamide HCl) latanoprost 0.005 % eye drops 1 drp OPHTH HS #0 drps 03/08/13 04/14/19 (Xalatan) aspirin 81 mg tablet,delayed 81 mg PO DAILY 04/14/19 04/14/19 release metoprolol tartrate 50 mg tablet 50 mg PO DAILY 04/14/19 04/14/19 timolol maleate 1 drp ophthalmic (eye) DIRECTED 04/14/19 04/14/19 Previous Rx's Medication Instructions Recorded doxycycline monohydrate 100 mg 100 mg PO BID #20 caps 08/21/22 capsule Allergies Allergy/AdvReac Type Severity Reaction Status Date / Time Dtncgiu-WSR-ReF Reductase Allergy Mild EYE TROUBLE Verified 04/14/21 08:46 Inhibitor [[id number] REDUCTASE INHIBITOR] alfuzosin [ALFUZOSIN] AdvReac Unknown PALPITATION Verified 04/14/21 08:46 S dutasteride [DUTASTERIDE] AdvReac Unknown PALPITATION Verified 04/14/21 08:46 S Review of Systems Review of Systems Narrative: See HPI for pertinent positives, otherwise review of systems negative Patient History Medical History (Updated 07/02/23 @ 21:54 by Jericho Gilliland MD) 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) Primary open angle glaucoma (POAG) of both eyes, mild stage (09/19/15) Mixed hyperlipidemia (09/19/15) History of stroke (09/19/15) Gastroesophageal reflux disease with esophagitis (09/19/15) Essential hypertension with goal blood pressure less than 130/85 (09/19/15) Benign non-nodular prostatic hyperplasia with lower urinary tract symptoms (09/19/15) Atypical chest pain Surgical History Status post cholecystectomy Family History Father Cancer Social History Smoking Status: Never smoker Smoking Status: Never smoker alcohol intake frequency: 0-2 drinks per day Substance Use Type: does not use Exam Initial Vital Signs Initial Vital Signs: Vital Signs Temperature 98.7 F 07/02/23 19:26 Pulse Rate 73 07/02/23 19:26 Respiratory Rate 17 07/02/23 19:26 Blood Pressure 175/89 H 07/02/23 19:26 Pulse Oximetry 97 07/02/23 19:26 Oxygen Delivery Method Room Air 07/02/23 19:26 Const General: cooperative, comfortable, well developed, well groomed, No acute distress, No anxious and No ill appearing [facility] Head: normal to inspection, normocephalic and atraumatic Eyes General: Yes appearance normal, both eyes and all related structures Pupils: PERRL Neck Neck: normal visual inspection, full ROM, no meningeal signs, supple, No tender and No torticollis Chest Chest: normal inspection of the chest and normal palpation of entire chest wall Resp Effort & Inspection: normal respiratory effort, able to speak in complete sentences and no cough Cardio Rate: regular rate Rhythm: regular rhythm Pulses: radial pulses present GI Palpation: soft, No firm, No guarding, No hernia and No tender Other: Exam deferred Back/Spine/Pelvis Back: normal to inspection, No back tenderness, No crepitance, No CVA tenderness, No erythema and No warmth Skin General: no rashes or lesions noted Neuro General: patient alert, patient awake, patient oriented x3, gait normal, moves all extremities, no meningeal signs and no focal motor deficits Extrem General: normal to inspection and full ROM Psych Appearance: grossly normal Mental Status: mental status grossly normal Course Course Course Narrative: See MDM Orders Ordered: ED Orders 07/02/23 19:33 EKG-12 Lead Stat 07/02/23 19:35 Complete Blood Count AUTO DIFF Stat Comprehensive Metabolic Panel Stat Lipase Stat 07/02/23 20:41 CT abdomen pelvis w con Stat Discontinued Medications Ketorolac Tromethamine (Ketorolac 30 Mg/Ml Vial) 15 mg IV NOW ONE Stop: 07/02/23 21:52 Last Admin: 07/02/23 22:00 Dose: 15 mg Ondansetron HCl (Ondansetron 4 Mg Odt) 4 mg PO NOW PRN PRN Reason: Nausea And Vomiting Ondansetron HCl (Ondansetron 4 Mg/2 Ml Inj) 4 mg IV NOW PRN PRN Reason: Nausea And Vomiting Vital Signs Vital signs: Vital Signs - 8 hr 07/02/23 19:26 07/02/23 22:06 Temperature 98.7 F Pulse Rate 73 65 Respiratory Rate 17 22 Blood Pressure 175/89 H 177/86 H Pulse Oximetry 97 97 Oxygen Delivery Method Room Air Room Air MDM - Abdominal Pain Differential Diagnosis Differential diagnosis: Likely abdominal pain, acute appendicitis, calculus of kidney, constipation, diverticulitis, gastroenteritis and small bowel obstruction Lab Data Lab results narrative: Minor hyponatremia, otherwise WNL/non-actionable 07/02/23 19:35 07/02/23 19:35 Labs: Lab Results 07/02/23 Range/Units 19:35 WBC 9.5 (4.5-11.0) X10^3/uL RBC 5.15 (4.5-5.9) X10^6/uL Hgb 16.2 (13.5-17.5) g/dL Hct 47.0 (41-53) % MCV 91.3 (80-100) fL MCH 31.4 (26-34) PG MCHC 34.4 (30-36) % RDW 13.5 (11.6-14.8) % Plt Count 308 (150-400) X10^3/uL Neut % (Auto) 65.9 (50-75) % Lymph % (Auto) 23.9 L (25-40) % [place] % (Auto) 7.9 (3-14) % Eos % (Auto) 1.7 L (2-4) % Baso % (Auto) 0.6 (0-2) % Neut # (Auto) 6300 (0707-9024) /uL Lymph # (Auto) 2300 (0491-1070) /uL [place] # (Auto) 800 (0-900) /uL Eos # (Auto) 200 (0-450) /uL Baso # (Auto) 100 (0-100) /uL Sodium 135 L (137-145) mmol/L Potassium 4.4 (3.4-5.1) mmol/L Chloride 100 (98-107) mmol/L Carbon Dioxide 27 (22-32) mmol/L BUN 21 H (9-20) mg/dL Creatinine 0.81 (0.66-1.25) mg/dL Estimated GFR > 60 (>60) mL/min BUN/Creatinine Ratio 25.9 H (6-22) Glucose 104 (80-110) mg/dL Calcium 9.8 (8.4-10.2) mg/dL Total Bilirubin 0.9 (0.2-1.3) mg/dL AST 52 (17-59) IU/L ALT 48 (<50) IU/L Alkaline Phosphatase 93 (38-126) U/L Total Protein 8.1 (6.3-8.2) g/dL Albumin 4.6 (3.5-5.0) g/dL Globulin 3.5 (1.7-4.1) g/dL Albumin/Globulin Ratio 1.3 (1.0-2.8) Lipase 109 (23-300) U/L Point of care testing: Urine Dip Bedside Urine Glucose Negative Bedside Urine Bilirubin - Negative Bedside Urine Ketone - Negative Urine Specific [place] 1.030 Bedside Urine Occult Blood - Negative Bedside Urine pH 6.0 Bedside Urine Protein - Negative Bedside Urine Urobilinogen - Negative Bedside Urine Nitrite - Negative Bedside Urine Leukocytes - Negative Esterase Imaging Data CT scan - abdomen/pelvis: My Impression: No acute disease, no bowel obstruction, perforation, mass or abscess Radiologist's Impression: No acute disease, diverticula without diverticulitis noted MDM Narrative Medical decision making narrative: Patient presents with right lower quadrant abdominal pain radiating to his back for 2 weeks. Vital signs within normal limits/non actionable. Diagnostic laboratory testing within normal limits/non actionable. CT abdomen and pelvis not suggestive of acute disease, bowel obstruction perforation, mass or abscess. Urinalysis not suggestive of UTI. Discussed findings with patient. Diverticula noted without diverticulitis. Toradol given for pain control. He is unclear at this time would has caused patient's abdominal/back discomfort. Patient does report using Naprosyn with improvement in symptoms. Encouraged patient to continue taking [id number] NSAIDs as needed for symptomatic care. Follow-up recommended within 1 week. Return precautions given. Patient discharged home in stable condition unable to ambulate well without assistance at time of discharge. Discharge Plan Departure Patient Disposition: Home Clinical Impression: Abdominal pain of unknown etiology Instructions: DI for Abdominal Pain-Adult Prescriptions: Continued DORZOLAMIDE HYDROCHLORIDE (Dorzolamide HCl) 1 drp OPHTH BID Qty: 0 latanoprost [Xalatan] 0.005 % drops 1 drp OPHTH HS Qty: 0 aspirin 81 mg Tablet,Delayed Release (Dr/Ec) 81 mg PO DAILY metoprolol tartrate 50 mg tablet 50 mg PO DAILY timolol maleate 1 drp ophthalmic (eye) DIRECTED doxycycline monohydrate 100 mg capsule 100 mg PO BID Qty: 20 0RF Referrals: Katharina Valencia MD [Primary Care Provider] - As soon as possible Stand Alone Forms: Patient Portal/API
[2023-07-02] MEDS: KETOROLAC 30 MG/ML VIAL 15 MG IV (22:00)
[2023-07-02 22:06] VITALS: BP 177/86; PULSE 65; RESP 22; O2SAT 97
== END 2023-07-02 22:08 | disposition home or self-care (01) ==
PROVIDERS: Emergency Provider Emergency Medicine; Family Provider Family Medicine; PCP Family Medicine
DX: R10.31 Right lower quadrant pain (principal)
CPT/HCPCS: 36415; 74177; 80053; 81003; 83690; 85025; 93005; 96374; 99284; J1885; Q9967

== ENCOUNTER → 2023-08-25 12:56 | Outpatient (CLI) | payer MEDICARE, SELFPAY | PROVIDERS: Family Provider Family Medicine; PCP Family Medicine; Visit Provider Nurse Practitioner Family | DX: J02.9 Acute pharyngitis, unspecified (principal) | CPT/HCPCS: 87070 ==